=== PATIENT | female | born 1985 | race Caucasian/White ===

== ENCOUNTER 2018-11-11 08:17 | Emergency (ER) | payer MEDICAID ==
[~2018-11-11] VITALS: Ht 162.6 cm; Wt 60.0 kg
[2018-11-11] MEDS ORDERED: KETOROLAC 60MG/2ML VIAL IM ONE (09:00)
[2018-11-11 10:50] VITALS: BP 114/72
== END 2018-11-11 11:00 | disposition home or self-care (01) ==
LOC: ER 08:17
DX: S52.591A Other fractures of lower end of right radius, initial encounter for closed fracture (principal); Z98.890 Other specified postprocedural states; V43.52XA Car driver injured in collision with other type car in traffic accident, initial encounter; Y93.89 Activity, other specified; Y92.488 Other paved roadways as the place of occurrence of the external cause
CPT/HCPCS: 29125; 73110; 81025; 96372; 99283; J1885; A4565